=== PATIENT | male | born 1990 | race Two or more races ===

== ENCOUNTER 2021-10-13 01:20 | Emergency (ER) | payer SELFPAY ==
[~2021-10-13] VITALS: Ht 182.9 cm; Wt 81.6 kg
[2021-10-13 01:33] VITALS: BP 142/81
[2021-10-13 08:05] LABS: Chloride 106 mmol/L (98-107); Potassium 3.9 mmol/L (3.5-5.1); Sodium 135 mmol/L (136-145)
[2021-10-13 08:10] LABS: Alanine Aminotransferase 47 U/L (16-61); Albumin 4.2 g/dL (3.4-5.0); Alkaline Phosphatase 63 U/L (45-117); Anion Gap 8 (5-15); Aspartate Aminotransferase 37 U/L (15-37); BUN/Creatinine Ratio 13.9; Bilirubin, Total 1.6 mg/dL (0.2-1.0); Blood Alcohol < 3.0 mg/dL (0-5); Blood Urea Nitrogen 17 mg/dL (7-18); Calcium 8.5 mg/dL (8.5-10.1); Carbon Dioxide 21 mmol/L (21-32); GFR African American 88 mL/min; GFR Non-African American 73 mL/min; Glucose 94 mg/dL (74-106); Total Protein 7.5 g/dL (6.4-8.2)
[2021-10-13 08:12] LABS: Basophils # (auto) 0.1 10 ^3/uL (0-0.2); Basophils % (auto) 0.4 % (0.0-2.0); Eosinophils # (auto) 0 10 ^3/uL (0-0.8); Eosinophils % (auto) 0.3 % (0.0-7.0); Hematocrit 50.3 % (41.0-53.0); Hemoglobin 16.1 g/dL (13.5-17.5); Lymphocytes # (auto) 1.4 10 ^3/uL (0.4-5.4); Lymphocytes % (auto) 8.6 % (10.0-50.0); Mean Corpuscular Hemoglobin 29.2 pg (28.0-32.0); Mean Corpuscular Hgb Conc. 32.1 g/dL (32.0-36.0); Monocytes # (auto) 1.7 10 ^3/uL (0-1.3); Monocytes % (auto) 10.5 % (0.0-12.0); Neutrophils % (auto) 80.2 % (37.0-80.0); Nucleated Red Blood Cells % 0.3 %; Red Blood Cells 5.52 10^6/uL (4.5-5.90); Red Cell Distribution Width 13.3 % (11.8-14.3); White Blood Cell 16.2 10^3/uL (4.4-10.8)
== END 2021-10-13 08:23 | disposition left against medical advice (07) ==
LOC: EDBD 01:20 → ER 01:20
DX: F91.9 Conduct disorder, unspecified (principal); Z53.21 Procedure and treatment not carried out due to patient leaving prior to being seen by health care provider
CPT/HCPCS: 36415; 80053; 80320; 85025

== ENCOUNTER 2024-06-27 19:10 | Emergency (ER) | payer MEDICAID, OTHER ==
[~2024-06-27] VITALS: Ht 182.9 cm; Wt 81.8 kg
[2024-06-27 19:25] VITALS: BP 158/94; PULSE 99; RESP 20; O2SAT 97
[2024-06-28] MEDS ORDERED: BACDST PO (23:36)
[2024-06-28] MEDS ORDERED: IBUP-1454 PO (23:36)
== END 2024-06-28 04:33 | disposition left against medical advice (07) ==
LOC: ER 19:10
DX: M79.672 Pain in left foot (principal); M79.671 Pain in right foot; F12.90 Cannabis use, unspecified, uncomplicated; F15.90 Other stimulant use, unspecified, uncomplicated; F17.210 Nicotine dependence, cigarettes, uncomplicated; F20.9 Schizophrenia, unspecified

== ENCOUNTER 2024-06-28 21:00 | Emergency (ER) | payer MEDICAID ==
[~2024-06-28] VITALS: Ht 185.4 cm; Wt 75.8 kg
[2024-06-28 23:25] VITALS: BP 143/93; PULSE 82; RESP 18; TEMP 97.9; O2SAT 100
[2024-06-28] MEDS ORDERED: IBUP-1454 PO (23:36)
[2024-06-28] MEDS ORDERED: BACDST PO (23:36)
[2024-06-28] MEDS: KETOROLAC TROMETH 30 MG/ML 1ML VIAL IM ONE (23:53)
[2024-06-28] MEDS: cefTRIAXone SOD 1,000 MG VL IM ONE (23:53)
== END 2024-06-29 00:47 | disposition home or self-care (01) ==
LOC: ER 21:00
DX: L03.115 Cellulitis of right lower limb (principal); M79.89 Other specified soft tissue disorders; F17.210 Nicotine dependence, cigarettes, uncomplicated; F15.90 Other stimulant use, unspecified, uncomplicated; Z79.899 Other long term (current) drug therapy
CPT/HCPCS: 73630; 96372; 99284; J0696; J1885

== ENCOUNTER 2024-07-06 22:32 | Emergency (ER) | payer MEDICAID ==
[~2024-07-06] VITALS: Ht 185.4 cm; Wt 80.0 kg
[~2024-07-06 22:32] MED LIST: BACDST PO; IBUP-1454 PO
[2024-07-07 00:19] LABS: Basophils # (auto) 0.1 10 ^3/uL (0-0.2); Eosinophils # (auto) 0.5 10 ^3/uL (0-0.8); Eosinophils % (auto) 5.4 % (0.0-7.0); Hematocrit 45.2 % (41.0-53.0); Hemoglobin 15.6 g/dL (13.5-17.5); Lymphocytes # (auto) 2.2 10 ^3/uL (0.4-5.4); Mean Corpuscular Hemoglobin 30.4 pg (28.0-32.0); Mean Corpuscular Hgb Conc. 34.6 g/dL (32.0-36.0); Mean Corpuscular Volume 87.9 fL (80.0-100.0); Monocytes # (auto) 0.9 10 ^3/uL (0-1.3); Monocytes % (auto) 9.7 % (0.0-12.0); Neutrophils # (auto) 5.8 10 ^3/uL (1.6-8.6); Neutrophils % (auto) 60.9 % (37.0-80.0); Nucleated Red Blood Cells % 0.1 %; Platelet Count (auto) 427 10^3/uL (140-450); Red Blood Cells 5.14 10^6/uL (4.5-5.90); Red Cell Distribution Width 13.4 % (11.8-14.3); White Blood Cell 9.5 10^3/uL (4.4-10.8)
[2024-07-07 00:31] LABS: Alanine Aminotransferase 45 U/L (7-40); Albumin 4.8 g/dL (3.2-4.8); Alkaline Phosphatase 78 U/L (46-116); Anion Gap 4 (5-15); Aspartate Aminotransferase 19 U/L (13-40); Blood Urea Nitrogen 16 mg/dL (9-23); Calcium 9.8 mg/dL (8.7-10.4); Carbon Dioxide 29 mmol/L (20-30); Chloride 106 mmol/L (98-107); Glucose 97 mg/dL (74-106); Potassium 4.3 mmol/L (3.5-5.1); Sodium 139 mmol/L (136-145)
[2024-07-07 00:32] LABS: Bilirubin, Total 0.4 mg/dL (0.2-1.0); Total Protein 7.6 g/dL (5.7-8.2)
[2024-07-07] MEDS ORDERED: CLIN1CAP70 PO (01:24)
[2024-07-07 05:30] VITALS: BP 112/78; PULSE 68; RESP 16; TEMP 98; O2SAT 98
== END 2024-07-07 05:45 | disposition home or self-care (01) ==
LOC: ER 22:32
DX: L03.115 Cellulitis of right lower limb (principal); F17.210 Nicotine dependence, cigarettes, uncomplicated; F15.90 Other stimulant use, unspecified, uncomplicated; F12.90 Cannabis use, unspecified, uncomplicated; Z79.899 Other long term (current) drug therapy
CPT/HCPCS: 36415; 73620; 80053; 83605; 85025